=== PATIENT | female | born 1935 | race Caucasian/White ===

== ENCOUNTER 2017-01-30 16:37 | Inpatient (IN) | payer MEDICARE, OTHER ==
[~2017-01-30] VITALS: Ht 157.5 cm; Wt 52.0 kg
[2017-01-30] MEDS ORDERED: ASPIRIN 81 MG TABLET CHEW PO ONE (17:30)
[2017-01-30 17:54] LABS: WHITE BLOOD COUNT 7.2 x10^3/uL (3.4-10)
[2017-01-30] MEDS ORDERED: SODIUM CHLORIDE FLUSH 10ML SYR IVF ONE (18:00)
[2017-01-30] MEDS ORDERED: VANCOMYCIN PMX 1GM/200ML 200 ML IV ONE (18:00)
[2017-01-30] MEDS ORDERED: SODIUM CHLORIDE 0.9% 1,000ML IVBOLUS ONE (18:00)
[2017-01-30] MEDS ORDERED: AMPICILLIN/SULBACTAM 3 GM in SODIUM CHLORIDE 0.9% 100 ML IVPB ONE (18:00)
[2017-01-30] MEDS ORDERED: VANCOMYCIN PER PHARMACY MC ONE (18:00)
[2017-01-30 18:05] LABS: ASPARTATE AMINO TRANSFERASE 35 U/L (15-37); BLOOD UREA NITROGEN 41 mg/dL (7-18)
[2017-01-30 19:23] LABS: IS PT STATUS REG ER OR PRE ER? YES
[2017-01-30] MEDS ORDERED: ASPIRIN 81 MG TABLET CHEW ONE (19:26)
[2017-01-30] MEDS ORDERED: SODIUM CHLORIDE 0.9% 1,000 ML IV SCH (19:58)
[2017-01-30] MEDS ORDERED: ONDANSETRON 2MG/ML, 2ML IVPush PRN (20:00)
[2017-01-30] MEDS ORDERED: ACETAMINOPHEN 325 MG TABLET PO PRN (20:00)
[2017-01-30] MEDS ORDERED: hydrALAzine 20 MG/ML, 1ML IVPush PRN (20:00)
[2017-01-30] MEDS ORDERED: ZOLPIDEM 5MG TABLET PO PRN (20:00)
[2017-01-30] MEDS ORDERED: LORazepam 1MG TABLET PO PRN (20:00)
[2017-01-30] MEDS ORDERED: HYDROmorphone 2 MG/ML, 1ML IVPush PRN (20:00)
[2017-01-30 22:38] VITALS: BP 91/55
[2017-01-31] MEDS: CLINDAMYCIN PMX 900MG/50ML 100 ML IV SCH ×3 (01:30→16:22)
[2017-01-31 02:55] VITALS: BP 97/59
[2017-01-31 05:26] LABS: HEMATOCRIT 31.5 % (34.6-47.8); HEMOGLOBIN 10.6 g/dL (11.7-16.4); WHITE BLOOD COUNT 4.7 x10^3/uL (3.4-10)
[2017-01-31 05:40] LABS: BLOOD UREA NITROGEN 33 mg/dL (7-18)
[2017-01-31 07:59] VITALS: BP 93/53
[2017-01-31] MEDS: ENOXAPARIN 40 MG/0.4 ML SQ SCH (08:08)
[2017-01-31] MEDS: PANTOPRAZOLE 40 MG IV IVPush SCH (08:08)
[2017-01-31] MEDS ORDERED: D5%-0.45% NACL 1,000 ML IV SCH (09:07)
[2017-01-31] MEDS ORDERED: POTASSIUM CHLORIDE 20 MEQ TAB.ER.PRT PO ONE (09:30)
[2017-01-31 11:43] LABS: FERRITIN 85.3 ng/mL (8-252)
[2017-01-31] MEDS ORDERED: ALEN70TA5 PO (12:50)
[2017-01-31] MEDS ORDERED: LEVO75TA5 PO (12:50)
[2017-01-31] MEDS: D5%-0.45% NACL 1,000 ML IV SCH (13:43)
[2017-01-31] MEDS ORDERED: POTASSIUM PHOSPHATE 22 MEQ in SODIUM CHLORIDE 0.9% 500 ML IV ONE (14:30)
[2017-01-31 14:51] VITALS: BP 97/59
[2017-01-31] MEDS: LACTOBACILLUS CHEW TABLET PO SCH ×2 (16:46→19:35)
[2017-01-31] MEDS: CLINDAMYCIN PMX 900MG/50ML 50 ML IV SCH (18:58)
[2017-01-31 19:15] LABS: OCCBLD OBC PASS
[2017-01-31 19:30] VITALS: BP 105/62
[2017-02-01 01:21] VITALS: BP 110/65
[2017-02-01] MEDS: CLINDAMYCIN PMX 900MG/50ML 50 ML IV SCH ×3 (03:19→18:43)
[2017-02-01 04:44] LABS: BLOOD UREA NITROGEN 24 mg/dL (7-18)
[2017-02-01 04:50] LABS: HEMATOCRIT 33.8 % (34.6-47.8); HEMOGLOBIN 11.2 g/dL (11.7-16.4); WHITE BLOOD COUNT 5.7 x10^3/uL (3.4-10)
[2017-02-01] MEDS: LACTOBACILLUS CHEW TABLET PO SCH ×4 (05:41→21:16)
[2017-02-01 07:30] VITALS: BP 115/81
[2017-02-01] MEDS: PANTOPRAZOLE 40 MG IV IVPush SCH (09:21)
[2017-02-01] MEDS: ENOXAPARIN 40 MG/0.4 ML SQ SCH (09:22)
[2017-02-01] MEDS ORDERED: LEVOTHYROXINE 75 MCG TABLET PO SCH (12:00)
[2017-02-01] MEDS: LEVOTHYROXINE 75 MCG TABLET PO SCH ×2 (12:30→15:36)
[2017-02-01 13:30] VITALS: BP 104/62
[2017-02-01] MEDS ORDERED: LEVOTHYROXINE 88 MCG TABLET PO ONE (18:30)
[2017-02-01] MEDS: D5%-0.45% NACL 1,000 ML IV SCH (18:46)
[2017-02-01 19:04] VITALS: BP 110/65
[2017-02-01] MEDS ORDERED: FUROSEMIDE 20 MG/2 ML IV ONE (22:00)
[2017-02-02 00:36] VITALS: BP 107/63
[2017-02-02] MEDS: CLINDAMYCIN PMX 900MG/50ML 50 ML IV SCH ×3 (03:21→18:04)
[2017-02-02] MEDS: D5%-0.45% NACL 1,000 ML IV SCH (03:22)
[2017-02-02] MEDS: LEVOTHYROXINE 75 MCG TABLET PO SCH (03:28)
[2017-02-02] MEDS: LACTOBACILLUS CHEW TABLET PO SCH ×4 (03:28→21:08)
[2017-02-02 05:04] LABS: HEMATOCRIT 34.2 % (34.6-47.8); HEMOGLOBIN 11.4 g/dL (11.7-16.4); WHITE BLOOD COUNT 7.1 x10^3/uL (3.4-10)
[2017-02-02 05:17] LABS: BLOOD UREA NITROGEN 16 mg/dL (7-18)
[2017-02-02] MEDS: PANTOPRAZOLE 40 MG IV IVPush SCH (07:30)
[2017-02-02 09:15] VITALS: BP 115/68
[2017-02-02] MEDS ORDERED: EPINEPHRINE 1 MG/ML, 1ML ONE (09:18)
[2017-02-02] MEDS ORDERED: BACITRACIN 50,000 UNIT ONE (09:18)
[2017-02-02] MEDS ORDERED: LIDOCAINE/PF 1%, 30ML ONE (09:18)
[2017-02-02] MEDS ORDERED: FENTANYL PF 100 MCG/2ML ONE ×2 (09:51→11:05)
[2017-02-02] MEDS ORDERED: LIDOCAINE GEL 2%, 5ML ONE (10:11)
[2017-02-02] MEDS ORDERED: ROCURONIUM 10 MG/ML ONE (10:26)
[2017-02-02] MEDS ORDERED: PROPOFOL 10 MG/ML, 20ML ONE (10:26)
[2017-02-02] MEDS ORDERED: ONDANSETRON 2MG/ML, 2ML ONE (10:26)
[2017-02-02] MEDS: POTASSIUM CHLORIDE 20 MEQ TAB.ER.PRT PO ONE ×2 (11:30→18:09)
[2017-02-02] MEDS ORDERED: ACETAMINOPHEN 325 MG TABLET PO PRN (11:30)
[2017-02-02] MEDS ORDERED: FENTANYL PF 100 MCG/2ML IV PRN (11:30)
[2017-02-02] MEDS ORDERED: OXYcodone 5 MG/5 ML ORAL.SOL UDC PO PRN (11:30)
[2017-02-02] MEDS ORDERED: HYDROmorphone 1 MG/ML, 1ML IV PRN (11:30)
[2017-02-02] MEDS ORDERED: ONDANSETRON 2MG/ML, 2ML IVPush PRN (11:30)
[2017-02-02 12:40] VITALS: BP 102/59
[2017-02-02 20:43] VITALS: BP 91/56
[2017-02-02] MEDS: SODIUM CHLORIDE FLUSH 10ML SYR IVF SCH (21:00)
[2017-02-03 01:01] VITALS: BP 96/61
[2017-02-03] MEDS: CLINDAMYCIN PMX 900MG/50ML 50 ML IV SCH ×3 (03:25→17:56)
[2017-02-03 05:09] LABS: OCCBLD OBC PASS
[2017-02-03] MEDS: LEVOTHYROXINE 75 MCG TABLET PO SCH (05:54)
[2017-02-03] MEDS: LACTOBACILLUS CHEW TABLET PO SCH ×4 (05:54→22:05)
[2017-02-03 07:00] VITALS: BP 103/60
[2017-02-03 07:07] LABS: HEMATOCRIT 33.5 % (34.6-47.8); HEMOGLOBIN 11.2 g/dL (11.7-16.4); WHITE BLOOD COUNT 7.3 x10^3/uL (3.4-10)
[2017-02-03 07:19] LABS: BLOOD UREA NITROGEN 23 mg/dL (7-18)
[2017-02-03] MEDS: PANTOPRAZOLE 40 MG IV IVPush SCH (10:26)
[2017-02-03] MEDS: SODIUM CHLORIDE FLUSH 10ML SYR IVF SCH ×2 (10:26→22:07)
[2017-02-03] MEDS: MULTIVIT.W/IRON, MINERALS ORAL SOL PO SCH (10:27)
[2017-02-03] MEDS: CEFTRIAXONE PMX 1GM/50ML 50 ML IV SCH (10:31)
[2017-02-03] MEDS: ENOXAPARIN 40 MG/0.4 ML SQ SCH (10:38)
[2017-02-03 12:12] LABS: OCCBLD OBC PASS
[2017-02-03 13:40] VITALS: BP 103/67
[2017-02-03 19:04] VITALS: BP 115/73
[2017-02-04 01:38] VITALS: BP 110/65
[2017-02-04] MEDS: CLINDAMYCIN PMX 900MG/50ML 50 ML IV SCH ×3 (03:11→19:20)
[2017-02-04 05:06] LABS: HEMATOCRIT 31.6 % (34.6-47.8); HEMOGLOBIN 10.7 g/dL (11.7-16.4)
[2017-02-04 05:16] LABS: BLOOD UREA NITROGEN 22 mg/dL (7-18)
[2017-02-04] MEDS: LEVOTHYROXINE 75 MCG TABLET PO SCH (06:00)
[2017-02-04] MEDS: LACTOBACILLUS CHEW TABLET PO SCH ×4 (06:00→20:43)
[2017-02-04 07:08] VITALS: BP 103/66
[2017-02-04] MEDS: SODIUM CHLORIDE FLUSH 10ML SYR IVF SCH ×2 (08:23→20:43)
[2017-02-04] MEDS: PANTOPRAZOLE 40 MG IV IVPush SCH (08:23)
[2017-02-04] MEDS: MULTIVIT.W/IRON, MINERALS ORAL SOL PO SCH (08:25)
[2017-02-04] MEDS: ENOXAPARIN 40 MG/0.4 ML SQ SCH (08:33)
[2017-02-04] MEDS: CEFTRIAXONE PMX 1GM/50ML 50 ML IV SCH (09:12)
[2017-02-04] MEDS ORDERED: POTASSIUM PHOSPHATE 44 MEQ in SODIUM CHLORIDE 0.9% 500 ML IV ONE (09:30)
[2017-02-04] MEDS ORDERED: MAGNESIUM SULFATE PMX 2GM/50ML 50 ML IV ONE (13:00)
[2017-02-04 14:35] VITALS: BP 112/69
[2017-02-04] MEDS ORDERED: LORazepam 1MG TABLET PO PRN (16:30)
[2017-02-04] MEDS ORDERED: ACETAMINOPHEN 325 MG TABLET PO PRN (16:30)
[2017-02-04] MEDS ORDERED: ZOLPIDEM 5MG TABLET PO PRN (16:30)
[2017-02-04] MEDS ORDERED: ONDANSETRON 2MG/ML, 2ML IVPush PRN (16:30)
[2017-02-04] MEDS ORDERED: hydrALAzine 20 MG/ML, 1ML IVPush PRN (16:30)
[2017-02-04] MEDS ORDERED: HYDROmorphone 2 MG/ML, 1ML IVPush PRN (16:30)
[2017-02-04] MEDS: POTASSIUM CHLORIDE 20 MEQ PACKET PO SCH (17:20)
[2017-02-04 19:13] VITALS: BP 109/66
[2017-02-05 01:31] VITALS: BP 104/55
[2017-02-05] MEDS: CLINDAMYCIN PMX 900MG/50ML 50 ML IV SCH ×3 (02:51→18:37)
[2017-02-05] MEDS: LACTOBACILLUS CHEW TABLET PO SCH ×4 (05:39→21:08)
[2017-02-05] MEDS: LEVOTHYROXINE 75 MCG TABLET PO SCH (05:39)
[2017-02-05 05:41] LABS: HEMATOCRIT 32.2 % (34.6-47.8); HEMOGLOBIN 10.8 g/dL (11.7-16.4)
[2017-02-05 05:52] LABS: BLOOD UREA NITROGEN 20 mg/dL (7-18)
[2017-02-05 07:03] VITALS: BP 104/63
[2017-02-05] MEDS: PANTOPRAZOLE 40 MG IV IVPush SCH (07:36)
[2017-02-05] MEDS: SODIUM CHLORIDE FLUSH 10ML SYR IVF SCH ×2 (07:37→21:08)
[2017-02-05] MEDS: MULTIVIT.W/IRON, MINERALS ORAL SOL PO SCH (07:40)
[2017-02-05] MEDS: POTASSIUM CHLORIDE 20 MEQ PACKET PO SCH ×2 (07:40→17:23)
[2017-02-05] MEDS: ENOXAPARIN 40 MG/0.4 ML SQ SCH (10:24)
[2017-02-05] MEDS: CEFTRIAXONE PMX 1GM/50ML 50 ML IV SCH (10:38)
[2017-02-05 13:14] VITALS: BP 95/55
[2017-02-05] MEDS ORDERED: CEFT1FRO2 IV (13:37)
[2017-02-05] MEDS ORDERED: POTA20PA25 PO (13:37)
[2017-02-05] MEDS ORDERED: LEVO75TA PO ×2 (13:37)
[2017-02-05] MEDS ORDERED: [UNRECOGNIZED DRUG - CODE] IV (13:37)
[2017-02-05] MEDS ORDERED: LEVO88TA2 PO (13:37)
[2017-02-05 19:29] VITALS: BP 94/51
[2017-02-06 01:34] VITALS: BP 104/62
[2017-02-06] MEDS: CLINDAMYCIN PMX 900MG/50ML 50 ML IV SCH ×2 (02:28→11:18)
[2017-02-06 05:58] LABS: BLOOD UREA NITROGEN 17 mg/dL (7-18)
[2017-02-06] MEDS: LACTOBACILLUS CHEW TABLET PO SCH ×2 (06:00→11:18)
[2017-02-06 07:00] VITALS: BP 121/68
[2017-02-06] MEDS: PANTOPRAZOLE 40 MG IV IVPush SCH (08:06)
[2017-02-06] MEDS: POTASSIUM CHLORIDE 20 MEQ PACKET PO SCH (08:08)
[2017-02-06] MEDS: SODIUM CHLORIDE FLUSH 10ML SYR IVF SCH (08:10)
[2017-02-06] MEDS ORDERED: LEVOTHYROXINE 88 MCG TABLET PO SCH ×2 (09:00)
[2017-02-06] MEDS: ENOXAPARIN 40 MG/0.4 ML SQ SCH (10:00)
[2017-02-06] MEDS: CEFTRIAXONE PMX 1GM/50ML 50 ML IV SCH (10:43)
[2017-02-06] MEDS: MULTIVIT.W/IRON, MINERALS ORAL SOL PO SCH (10:44)
[2017-02-06 14:20] VITALS: BP 102/55
[2017-02-09] MEDS ORDERED: ALENDRONATE 70 MG TABLET PO SCH (06:30)
== END 2017-02-06 16:00 | DRG 570 ==
LOC: ED 19:43 → EDIP 19:50 → 4NOR 22:20
PROVIDERS: ADMIT Family Medicine; ATTEND Family Medicine
PROC: 0T9B70Z Drainage of Bladder with Drainage Device, Via Natural or Artificial Opening (ICD-10-PCS; 2017-01-30)
PROC: 0JB90ZZ Excision of Buttock Subcutaneous Tissue and Fascia, Open Approach (ICD-10-PCS; principal; 2017-02-02 10:15)
DX: L89.313 Pressure ulcer of right buttock, stage 3 (principal); E43 Unspecified severe protein-calorie malnutrition; J18.9 Pneumonia, unspecified organism; E87.0 Hyperosmolality and hypernatremia; I95.9 Hypotension, unspecified; E87.2 Acidosis; E83.39 Other disorders of phosphorus metabolism; D53.9 Nutritional anemia, unspecified; E87.1 Hypo-osmolality and hyponatremia; J98.11 Atelectasis; L89.323 Pressure ulcer of left buttock, stage 3; R13.10 Dysphagia, unspecified; E86.0 Dehydration; W18.30XA Fall on same level, unspecified, initial encounter; E03.9 Hypothyroidism, unspecified; M19.90 Unspecified osteoarthritis, unspecified site; R35.0 Frequency of micturition; B96.20 Unspecified Escherichia coli [E. coli] as the cause of diseases classified elsewhere; B95.2 Enterococcus as the cause of diseases classified elsewhere; E87.6 Hypokalemia; I51.7 Cardiomegaly; K44.9 Diaphragmatic hernia without obstruction or gangrene; M81.0 Age-related osteoporosis without current pathological fracture; R29.6 Repeated falls; Z96.649 Presence of unspecified artificial hip joint; Y93.89 Activity, other specified; Y92.89 Other specified places as the place of occurrence of the external cause; Y99.8 Other external cause status; Z79.82 Long term (current) use of aspirin; Z71.3 Dietary counseling and surveillance; Z68.21 Body mass index [BMI] 21.0-21.9, adult
CPT/HCPCS: 36415; 71010; 74220; 80048; 80053; 81001; 82272; 82533; 82550; 82607; 82728; 82746; 83540; 83550; 83605; 83735; 84100; 84145; 84443; 84466; 84484; 85025; 87040; 87070; 87075; 87077; 87086; 87186; 87205; 87324; 93005; 96361; 96365; 96366; J0171; J0295; J0696; J1650; J2405; J2704; J3010; J3370; J3490; C9113; J1940; J3475; J7030; J7040